=== PATIENT | female | born 1935 | race Caucasian/White ===

== ENCOUNTER 2017-03-01 08:32 | Outpatient (CLI) | payer MEDICARE, OTHER ==
--- NOTE | 2017-03-01 09:48 | RAD ---
LEFT HIP 2 VIEWS: HISTORY: An 82-year-old female with left hip pain. IMPRESSION: No fracture or dislocation. 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 POS: [facility]
--- NOTE | 2017-03-01 09:57 | RAD ---
LUMBAR SPINE 3 VIEWS: HISTORY: An 82-year-old female with low back pain with left leg radiation. FINDINGS: Multilevel disk-osteophytosis and facet arthrosis. There are also some interspinous process arthrosi s changes; 0.5 cm anterolisthesis of L4 on L5. IMPRESSION: Spondylosis with discogenic and degenerative changes. Mild anterolisthesis of L4 on L5. POS: [facility]
== END 2017-03-01 08:33 | disposition home or self-care (01) ==
LOC: RAD 08:32
PROVIDERS: ATTEND Family Medicine
DX: M47.26 Other spondylosis with radiculopathy, lumbar region (principal); M51.16 Intervertebral disc disorders with radiculopathy, lumbar region; M25.552 Pain in left hip; M43.16 Spondylolisthesis, lumbar region
CPT/HCPCS: 72100

== ENCOUNTER 2017-03-12 13:34 | Outpatient (CLI) | payer MEDICARE, OTHER ==
--- NOTE | 2017-03-12 16:39 | OP ---
DATE OF SERVICE: 03/12/2017 Bilateral lower extremity arterial ultrasound was performed on 03/12/2017. The right arterial wavefo arnel are mildly blunted in the femoral. Popliteal, posterior tibial and dorsalis pedis waveforms are nicely peaked and biphasic. On the left femoral, popliteal, posterior tibial and dorsalis pedis waveforms are nicely peaked and b iphasic. Ankle brachial index on the right is 0.86. Ankle brachial index on the left is 0.85. 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 Otherwise, normal arterial Doppler examination.
== END 2017-03-12 13:35 | disposition home or self-care (01) ==
LOC: ULT 13:34
PROVIDERS: ATTEND Family Medicine
DX: M79.604 Pain in right leg (principal)
CPT/HCPCS: 93922

== ENCOUNTER 2018-02-04 10:57 | Outpatient (CLI) | payer MEDICARE, OTHER | END 2018-02-04 10:58 | disposition home or self-care (01) | LOC: BICMAMMO 10:57 | PROVIDERS: ATTEND Family Medicine | DX: Z12.31 Encounter for screening mammogram for malignant neoplasm of breast (principal) | CPT/HCPCS: 77063; 77067 ==

== ENCOUNTER 2019-05-26 08:13 | Outpatient (CLI) | payer MEDICARE, OTHER ==
--- NOTE | 2019-05-26 09:38 | MMO ---
Bilateral MAMMO Bilat Screen [facility]. CLINICAL HISTORY: Patient is 84 years old and is seen for screening. The patient has no family history of breast cancer. The patient has no personal history of cancer. VIEWS: The views performed were: bilateral craniocaudal with tomosynthesis and bilateral mediolateral oblique with tomosynthesis. FILMS COMPARED: The present examination has been compared to prior imaging studies performed at [facility] on 05/03/2014, 08/09/2015, 12/06/2016 and 02/04/2018. This study has been interpreted with the assistance of computer-aided detection. MAMMOGRAM FINDINGS: There are scattered fibroglandular densities. There are no suspicious masses, suspicious calcifications, or new areas of architectural distortion. IMPRESSION: THERE IS NO MAMMOGRAPHIC EVIDENCE OF MALIGNANCY. A ROUTINE FOLLOW-UP MAMMOGRAM IN 1 YEAR IS RECOMMENDED. THE RESULTS OF THIS EXAM WERE SENT TO THE PATIENT. ACR BI-RADS Category 1 - Negative MAMMOGRAPHY NOTE: 1. A negative mammogram report should not delay a biopsy if a dominant of clinically suspicious mass is present. 2. Approximately 10% to 15% of breast cancers are not detected by mammography. 3. Adenosis and dense breasts may obscure an underlying neoplasm. Reported by: DEEPTI KRAUS MD Electonically Signed: [id number]
== END 2019-05-26 08:14 | disposition home or self-care (01) ==
LOC: BICMAMMO 08:13
PROVIDERS: ATTEND Family Medicine
DX: Z12.31 Encounter for screening mammogram for malignant neoplasm of breast (principal)
CPT/HCPCS: 77063; 77067

== ENCOUNTER 2021-08-25 10:43 | Outpatient (CLI) | payer MEDICARE, OTHER | END 2021-08-25 10:44 | disposition home or self-care (01) | LOC: BICMAMMO 10:43 | PROVIDERS: ATTEND Family Medicine | DX: Z12.31 Encounter for screening mammogram for malignant neoplasm of breast (principal) | CPT/HCPCS: 77063; 77067 ==